=== PATIENT | female | born 1945 | race Caucasian/White ===

== ENCOUNTER 2019-09-09 09:38 | Outpatient (CLI) | payer MEDICARE, SELFPAY ==
--- NOTE | ~2019-09-09 | NM_ITS ---
EXAMINATION: NM bone scan whole body DATE: 09/09/2019 13:18 INDICATION: Metastatic breast cancer. TECHNIQUE: 24.4 mCi Tc-99m HDP was administered intravenously. Delayed whole-body scintigrams were o btained. COMPARISON: Bone scan 04/26/2019, CT abdomen and pelvis 05/04/2018, knee radiographs 07/08/2019 FINDINGS: There is increased activity in the left acetabulum correlating with a lytic lesion with hea ling pathologic fracture on the prior CT. There is joint-centered increased activity in the knees cor relating with osteoarthritis on radiographs. There are foci of joint-centered increased activity in t horacic spine without comparison imaging, likely osteoarthritis. IMPRESSION: 1. Unchanged distribution of increased activity in right acetabulum correlating with a lytic lesion w ith healing pathologic fracture on the prior CT, consistent with metastatic disease. Given that the l esions seen on the prior CT were predominantly lytic, CT would be more sensitive than bone scan for m etastatic disease. Reviewed, dictated and finalized at location A. IMPRESSION: 1. Unchanged distribution of increased activity in right acetabulum correlating with a lytic lesion with healing pathologic fracture on the prior CT, consiste nt with metastatic disease. Given that the lesions seen on the prior CT were pr edominantly lytic, CT would be more sensitive than bone scan for metastatic dis ease.
== END 2019-09-09 09:39 | disposition home or self-care (01) ==
PROVIDERS: PCP Family Medicine; Visit Provider Internal Medicine Hematology & Oncology
DX: C50.919 Malignant neoplasm of unspecified site of unspecified female breast (principal); I74.9 Embolism and thrombosis of unspecified artery; R93.7 Abnormal findings on diagnostic imaging of other parts of musculoskeletal system
CPT/HCPCS: 78306; A9561

== ENCOUNTER 2020-03-09 10:56 | Outpatient (CLI) | payer MEDICARE, SELFPAY ==
--- NOTE | ~2020-03-09 | NM_ITS ---
EXAMINATION: NM bone scan whole body DATE: 03/09/2020 14:53 INDICATION: Metastatic breast cancer TECHNIQUE: 23.6 mCi Tc-99m HDP was administered intravenously. Delayed whole-body scintigrams were o btained. COMPARISON: Bone scan dated 09/09/2019, 05/07/2018, CT dated 05/04/2018 and MRI dated 05/06/2018 FINDINGS: Again seen is a region of mild increased uptake in the region of the right acetabulum. More subtle in creased uptake along a few ribs most prominent anteriorly at the left third rib and posteriorly at th e right likely seventh rib, the former unchanged dating back to 03/09/2020. The latter appears new or increased since the most recent study. No significant change in likely degenerative joint centered up take at the bilateral knees. IMPRESSION: 1. Unchanged increased uptake in the right acetabular region and at the anterior left third rib with new or increasing uptake at the posterior right seventh rib which could represent progression of meta static disease. Of note sensitivity on bone scan is relatively low for lytic lesions with several les ions evident on earlier CT which were not discernible on the contemporaneous bone scan and could cons ider correlation with chest CT for further evaluation. Reviewed, dictated and finalized at location A. ER TECHNOLOGY TEACHER IMPRESSION: 1. Unchanged increased uptake in the right acetabular region and at the anterio r left third rib with new or increasing uptake at the posterior right seventh r ib which could represent progression of metastatic disease. Of note sensitivity on bone scan is relatively low for lytic lesions with several lesions evident on earlier CT which were not discernible on the contemporaneous bone scan and c ould consider correlation with chest CT for further evaluation.
== END 2020-03-09 10:57 | disposition home or self-care (01) ==
PROVIDERS: PCP Family Medicine; Visit Provider Internal Medicine Hematology & Oncology
DX: C50.919 Malignant neoplasm of unspecified site of unspecified female breast (principal)
CPT/HCPCS: 36415; 78306; 80053; 85025; 86300; A9561

== ENCOUNTER 2020-03-18 10:48 | Outpatient (NON) | payer MEDICARE, SELFPAY ==
[2020-03-20 06:44] LABS: SARS-CoV-2 RNA PCR Positive
== END 2020-03-18 10:49 ==
PROVIDERS: Visit Provider Family Medicine
DX: U07.1 COVID-19 (principal)
CPT/HCPCS: 87635; C9803; U0003

== ENCOUNTER 2020-04-03 09:47 | Outpatient (CLI) | payer MEDICARE, SELFPAY ==
--- NOTE | ~2020-04-03 | CT_ITS ---
EXAMINATION: CT chest w con DATE: 04/03/2020 10:19 INDICATION: metastatic breast cancer TECHNIQUE: Computed tomography (CT) of the chest was performed with 100 mL Omnipaque-350 intravenous contrast. Additional 3D reconstructions utilizing coronal maximum intensity projection (MIP) were per formed. Automated exposure control and iterative reconstruction technique were employed. The dose-maria de jesus gth product was 739.31 mGy-cm. COMPARISON: None FINDINGS: Multiple small patchy regions of consolidation and groundglass opacity throughout both lungs consiste nt with multifocal pneumonia with appearance suspicious for COVID 19. No more typical smooth solid sp herical nodules to suggest metastatic disease. No pulmonary edema, pleural effusion or pneumothorax. Heart size is normal. No pericardial effusion. No pathologically enlarged thoracic lymphadenopathy. S mall sliding-type hiatal hernia. Diffuse hepatic steatosis. Gallbladder, spleen, pancreas and bilater al adrenal glands are normal. Partially visualized at least 3 cm left renal cyst. IMPRESSION: 1. Multiple bilateral patchy airspace opacities with appearance most consistent with multifocal pneum onia including COVID 19. 2. No lesion suspicious for metastatic disease. 3. Diffuse hepatic steatosis. Reviewed, dictated and finalized at location A. [employer]OR G[employer]ANTS IMPRESSION: 1. Multiple bilateral patchy airspace opacities with appearance most consistent with multifocal pneumonia including COVID 19. 2. No lesion suspicious for metastatic disease. 3. Diffuse hepatic steatosis.
== END 2020-04-03 09:48 | disposition home or self-care (01) ==
PROVIDERS: PCP Family Medicine; Visit Provider Internal Medicine Hematology & Oncology
DX: C79.81 Secondary malignant neoplasm of breast (principal); K76.0 Fatty (change of) liver, not elsewhere classified; R91.8 Other nonspecific abnormal finding of lung field
CPT/HCPCS: 71260; Q9967

== ENCOUNTER 2020-06-29 10:14 | Outpatient (CLI) | payer MEDICARE, SELFPAY | END 2020-06-29 10:15 | disposition home or self-care (01) | LOC: ANHCOVIDVC 10:15 | PROVIDERS: PCP Family Medicine | DX: Z23 Encounter for immunization (principal) | CPT/HCPCS: 0001A; 91300 ==

== ENCOUNTER 2020-07-20 10:07 | Outpatient (CLI) | payer MEDICARE, SELFPAY | END 2020-07-20 10:08 | disposition home or self-care (01) | LOC: ANHCOVIDVC 10:07 | PROVIDERS: PCP Family Medicine | DX: Z23 Encounter for immunization (principal) | CPT/HCPCS: 0002A; 91300 ==

== ENCOUNTER 2020-09-30 10:40 | Outpatient (CLI) | payer MEDICARE, SELFPAY ==
--- NOTE | ~2020-09-30 | NM_ITS ---
EXAMINATION: NM bone scan whole body DATE: 09/30/2020 14:18 INDICATION: Metastatic breast cancer TECHNIQUE: 24.5 mCi Tc-99m HDP was administered intravenously. Delayed whole-body scintigrams were o btained. COMPARISON: Bone scan dated 03/09/2020 FINDINGS: Again seen are several foci of likely metastatic atypical bone uptake with interval decrease in the d egree of uptake. This includes at the left acetabulum, anterior left third rib and at the posterior s eventh rib. The first corresponds to a primarily lytic lesion on CT dated 05/04/2018 was biopsied on 05/08/2018 and the latter 2 rib lesions with subtle corresponding sclerosis on the more recent chest CT d ated 04/03/2020. No discernible abnormal uptake above the level of the surrounding bone associated wit h an additional lytic lesion at the right ilium and mixed lytic and sclerotic lesions at the right sa cral ala and at the posterior right fourth and posterior left sixth ribs seen on the prior CT studies . Likely degenerative joint centered uptake at the bilateral knees. No other suspicious bone lesions identified. IMPRESSION: 1. Decrease in degree of uptake associated with the 3 previously noted lesions at the anterior left t hird rib, posterior right seventh rib and left acetabulum consistent with likely treated metastatic d isease. No new or enlarging foci of abnormal bone uptake to suggest progression of metastatic disease . Reviewed, dictated and finalized at location A. IMPRESSION: 1. Decrease in degree of uptake associated with the 3 previously noted lesions at the anterior left third rib, posterior right seventh rib and left acetabulum consistent with likely treated metastatic disease. No new or enlarging foci of abnormal bone uptake to suggest progression of metastatic disease.
== END 2020-09-30 10:41 | disposition home or self-care (01) ==
PROVIDERS: PCP Family Medicine; Visit Provider Internal Medicine Hematology & Oncology
DX: C50.919 Malignant neoplasm of unspecified site of unspecified female breast (principal)
CPT/HCPCS: 78306; A9561

== ENCOUNTER 2021-05-14 11:59 | Outpatient (CLI) | payer MEDICARE, SELFPAY ==
--- NOTE | ~2021-05-14 | NM_ITS ---
EXAMINATION: NM bone scan whole body DATE: 05/14/2021 15:02 INDICATION: Metastatic breast cancer. TECHNIQUE: 21 mCi Tc-99m HDP was administered intravenously. Delayed whole-body scintigrams were obt ained. COMPARISON: Bone scan dated 09/30/2020 and 09/03/2018 FINDINGS: Persistent abnormal uptake such with a large lesion at the left acetabulum with prior biopsy demonstr ating metastatic carcinoma consistent with breast primary. Additional persistent foci of abnormal u ptake at the right sacral ala and very subtly at the anterior left third and posterior right seventh ribs consistent with additional metastatic disease. Likely degenerative joint centered uptake at the bilateral knees, acromioclavicular and sternoclavicular joints. No other new or progressive foci of a bnormal uptake to suggest progression of metastatic disease. IMPRESSION: 1. Persistent foci of mild increased bone uptake associated with a lesions at the left supra-acetabul ar region consistent with biopsy-proven metastatic breast cancer and with additional lesions suspicio us for metastatic disease to the right sacral ala, left anterior third rib and right posterior sevent h rib. No new or enlarging foci of abnormal bone uptake to suggest progression of metastatic disease. Reviewed, dictated and finalized at location A. OR CONTROL SYSTEMS ENGINEER IMPRESSION: 1. Persistent foci of mild increased bone uptake associated with a lesions at t he left supra-acetabular region consistent with biopsy-proven metastatic breast cancer and with additional lesions suspicious for metastatic disease to the ri ght sacral ala, left anterior third rib and right posterior seventh rib. No new or enlarging foci of abnormal bone uptake to suggest progression of metastatic disease.
== END 2021-05-14 12:00 | disposition home or self-care (01) ==
LOC: ANHIMG 12:00
PROVIDERS: PCP Family Medicine; Visit Provider Internal Medicine Hematology & Oncology
DX: C50.919 Malignant neoplasm of unspecified site of unspecified female breast (principal)
CPT/HCPCS: 78306; A9561

== ENCOUNTER 2021-10-13 10:57 | Outpatient (CLI) | payer MEDICARE, SELFPAY ==
--- NOTE | ~2021-10-13 | NM_ITS ---
EXAMINATION: NM bone scan whole body DATE: 10/14/2021 07:36 INDICATION: Metastatic breast cancer. TECHNIQUE: 25.5 mCi Tc-99m HDP was administered intravenously. Delayed whole-body scintigrams were o btained. COMPARISON: Chest CT 04/03/2020, bone scan 05/14/2021, CT abdomen and pelvis 05/04/2018 FINDINGS: There is joint-centered increased activity in the spine, shoulders, and knees, likely osteo arthritis. There is increased activity in left acetabulum correlating with a lytic lesion by CT. Ther e is increased activity in left sacral ala correlating with a sclerotic lesion by CT. There is increa sed activity in anterior left third rib and multiple posterior ribs correlating with sclerotic lesion s by CT. IMPRESSION: 1. Increased activity in left acetabulum, sacrum, and multiple ribs without change in distribution, c onsistent with metastatic disease. Note that some lesions on prior imaging were lytic, and bone scan has low sensitivity for lytic lesions. Reviewed, dictated and finalized at location B. IMPRESSION: 1. Increased activity in left acetabulum, sacrum, and multiple ribs without krista nge in distribution, consistent with metastatic disease. Note that some lesions on prior imaging were lytic, and bone scan has low sensitivity for lytic lesio gregg.
== END 2021-10-13 10:58 | disposition home or self-care (01) ==
PROVIDERS: PCP Family Medicine; Visit Provider Internal Medicine Hematology & Oncology
DX: C79.81 Secondary malignant neoplasm of breast (principal)
CPT/HCPCS: 78306; A9561

== ENCOUNTER 2022-06-13 08:55 | Outpatient (CLI) | payer MEDICARE, SELFPAY ==
--- NOTE | ~2022-06-13 | NM_ITS ---
EXAMINATION: NM bone scan whole body DATE: 06/13/2022 12:28 INDICATION: Metastatic breast cancer. TECHNIQUE: 24 mCi Tc-99m HDP was administered intravenously. Delayed whole-body scintigrams were obt ained. COMPARISON: Bone scan 10/13/2021, chest CT 04/03/2020, CT abdomen and pelvis 05/04/2018 FINDINGS: There is increased activity in the knees without radiographic comparison, likely osteoarthr itis. Again seen is increased activity in left acetabulum. There are multiple foci of increased activ ity in the spine and sacrum with interval improvement. IMPRESSION: 1. Increased activity in the left acetabulum and sacrum and multiple foci in the spine with interval improvement correlating with abnormal lesions on prior CT, consistent with metastatic disease. Reviewed, dictated and finalized at location A. M AND GAS TURBINE ASSEMBLER IMPRESSION: 1. Increased activity in the left acetabulum and sacrum and multiple foci in th e spine with interval improvement correlating with abnormal lesions on prior CT , consistent with metastatic disease.
== END 2022-06-13 08:56 | disposition home or self-care (01) ==
PROVIDERS: PCP Family Medicine; Visit Provider Internal Medicine Hematology & Oncology
DX: C50.919 Malignant neoplasm of unspecified site of unspecified female breast (principal)
CPT/HCPCS: 78306; A9503

== ENCOUNTER 2023-02-08 09:25 | Outpatient (CLI) | payer MEDICARE, SELFPAY ==
--- NOTE | ~2023-02-08 | NM_ITS ---
NM bone scan whole body INDICATION: Prostatic cancer TECHNIQUE: The patient was injected with 24.5 mCi Tc 99m HDP. Gamma camera images of the region of i nterest and whole body were obtained. COMPARISON: Comparison to multiple prior studies sequentially, with oldest reviewed study dated 06/2020. FINDINGS: There is retention of radiotracer in the right renal collecting system and bladder. Stable mild uptake in the right supra-acetabular region which has decreased in intensity over time compared with multiple prior studies. There is mild multifocal paracentric uptake in the spine, nonspecific, a lthough there are no new areas of increased uptake. There are mild bilateral asymmetric uptake in the knees, likely degenerative. IMPRESSION: 1: Decreased uptake in the spine and right supra-acetabular region compared with prior examinations which may represent combination of treated metastatic disease and/or degenerative change. No new area s of abnormal uptake are seen. Reviewed, dictated and finalized at location B. IMPRESSION: 1: Decreased uptake in the spine and right supra-acetabular region compared wi th prior examinations which may represent combination of treated metastatic dis ease and/or degenerative change. No new areas of abnormal uptake are seen.
== END 2023-02-08 09:26 | disposition home or self-care (01) ==
PROVIDERS: PCP Family Medicine; Visit Provider Internal Medicine Hematology & Oncology
DX: C50.919 Malignant neoplasm of unspecified site of unspecified female breast (principal)
CPT/HCPCS: 78306; A9503

== ENCOUNTER 2023-06-27 14:00 | Outpatient (CLI) | payer MEDICARE, SELFPAY ==
--- NOTE | ~2023-06-27 | US_ITS ---
EXAMINATION: US venous doppler LE RT DATE: 06/27/2023 14:46 INDICATION: Right lower limb swelling. TECHNIQUE: Grayscale ultrasound images without and with compression and Doppler ultrasound images of the right lower extremity veins were obtained. COMPARISON: None. FINDINGS: The visualized portions of right profunda (deep) femoral vein, femoral vein, popliteal vein, peroneal veins, posterior tibial veins, and greater saphenous vein outflow are patent. There is thrombus in r ight common femoral vein. IMPRESSION: 1. Deep vein thrombosis involving right common femoral vein. Reviewed, dictated and finalized at location A. NIC SECTION TECHNICAL LEAD
== END 2023-06-27 14:01 | disposition home or self-care (01) ==
LOC: ANHIMG 14:06
PROVIDERS: PCP Family Medicine; Visit Provider Internal Medicine Hematology & Oncology
DX: M79.89 Other specified soft tissue disorders (principal); I82.411 Acute embolism and thrombosis of right femoral vein
CPT/HCPCS: 93971

== ENCOUNTER 2024-01-08 11:20 | Outpatient (CLI) | payer MEDICARE, SELFPAY ==
--- NOTE | ~2024-01-08 | NM_ITS ---
EXAMINATION: NM bone scan whole body DATE: 01/08/2024 14:59 INDICATION: Malignant neoplasm of breast with metastasis. TECHNIQUE: 25.4 mCi Tc-99m HDP was administered intravenously. Delayed whole-body scintigrams were o btained. COMPARISON: Bone scan 02/08/2023, chest CT 04/03/2020, CT abdomen and pelvis 05/04/18 FINDINGS: Obesity decreases sensitivity. There is joint-centered increased activity in the knees and thoracic spine, likely osteoarthritis. There is asymmetric increased activity in left acetabulum. IMPRESSION: 1. Chronic asymmetric increased activity in left acetabulum correlating with a lytic lesion on the CT from 05/04/2018, consistent with metastatic disease. Note that CT is more sensitive than bone scan for lytic bone lesions. Reviewed, dictated and finalized at location A.
== END 2024-01-08 11:21 | disposition home or self-care (01) ==
PROVIDERS: PCP Family Medicine; Visit Provider Internal Medicine Hematology & Oncology
DX: C50.919 Malignant neoplasm of unspecified site of unspecified female breast (principal)
CPT/HCPCS: 78306; A9503

== ENCOUNTER 2024-12-26 16:18 | Outpatient (CLI) | payer MEDICARE, SELFPAY ==
--- NOTE | ~2024-12-26 | US_ITS ---
EXAMINATION:US venous doppler LE RT INDICATION:DVT femoral vein TECHNIQUE: Multiple grayscale, color flow and Doppler images of the right lower extremity deep venous systems were obtained and reviewed. COMPARISON:Ultrasound dated 06/27/2023 FINDINGS: There is deep venous thrombosis of the left posterior tibial and peroneal vein. The remainder of the right lower extremity veins are patent with normal flow, compressibility and augmentation. IMPRESSION: 1: Deep venous thrombosis right posterior tibial and peroneal vein. Reviewed, dictated and finalized at location O.
--- OUTSIDE RECORDS SUMMARY | 2024-12-26 16:22 | XMS_ITS | Encounter Summary ---
Author Organization [facility] [facility] Address [address] [place] [address] Care Team Providers Care Optical Advisor Name Role Phone Philippe Paez MD Primary Care Provider [phone] Encounter Details Date Type Department Care Team (Late Contact Info) Description 12/23/2024 Orders Only [facility] Oncology and Hematology [facility] [address] [place] [address] Car Snyder MD [facility] [employer] [address] [address] [place] [id number] Primary malignant neoplasm of breast with metastasis (CMS/HCC) Social History Tobacco Use Types Packs/Day Years Used Date Smoking Tobacco: Never Smokeless Tobacco: Never Alcohol Use Standard Drinks/Week Comments Yes 0 (1 standard drink = 0.6 oz pur e alcohol) occassional Comments No Sex and Gender Information Value Date Recorded Sex Assigned at Not on file Legal Sex Female 2:38 PM DRAWER FITTER Gender Identity Not on file Sexual Orientation Not on file documented as of this encounter Plan of Treatment Upcoming Encounters Date Type Department Care Team (Late Contact Info) Description 03/11/2025 2:15 PM DRAWER FITTER Office Visit [facility] Oncology and Hematology [facility] [address] [place] [address] Car Snyder MD [address] [place] [phone] documented as of this encounter Visit Diagnoses Diagnosis Primary malignant neoplasm of breast with metastasis (CMS/HCC) documented in this encounter Care Teams Optical Advisor Relationship Specialty Start Date End Date Philippe Paez MD [address] [place] [address] PCP - General Family Practice 05/31/18 documented as of this encounter
--- OUTSIDE RECORDS SUMMARY | 2024-12-26 16:22 | XMS_ITS | Encounter Summary ---
Author Organization [facility] ([facility])[3] [employer] [facility] Address [address] [place] [address] Care Team Providers Care Data Mining Analyst Name Role Phone Philippe Paez MD Primary Care Provider [phone] Reason for Visit * Reason Comments Medication Refill Encounter Details Date Type Department Care Team ([facility] Contact Info) Description 05/27/2021 Refill [facility] Oncology and Hematology [facility] [address] [place] [address] Car Snyder MD [address] [facility] [address] [place] [address] Metastatic breast cancer (CMS/HCC) Social History Tobacco Use Types Packs/Day Years Used Date Smoking Tobacco: Never Smokeless Tobacco: Never Alcohol Use Standard Drinks/Week Comments Yes 0 (1 standard drink = 0.6 oz pur e alcohol) occassional Comments No Sex and Gender Information Value Date Recorded Sex Assigned at Not on file Legal Sex Female 2:38 PM MEDIA INTERN Gender Identity Not on file Sexual Orientation Not on file COVID-19 Exposure Response Date Recorded In the last month, have you been in contact with someone who was confirmed or suspected to have Coronavirus / COVID-19? No / Unsure 05/17/2021 8:43 AM MEDIA INTERN documented as of this encounter Plan of Treatment Upcoming Encounters Date Type Department Care Team ([facility] Contact Info) Description 03/11/2025 2:15 PM MEDIA INTERN Office Visit [facility] Oncology and Hematology [facility] [address] [place] [address] Car Snyder MD [address] [facility] [address] [place] [address] documented as of this encounter Visit Diagnoses Diagnosis Metastatic breast cancer documented in this encounter Care Teams Data Mining Analyst Relationship Specialty Start Date End Date Philippe Paez MD [address] [place] [address] PCP - General Family Practice 05/31/18 documented as of this encounter
--- OUTSIDE RECORDS SUMMARY | 2024-12-26 16:22 | XMS_ITS | Clinical Summary ---
Author Organization [facility] Address [address] [place] [address] Care Team Providers Care Cutting Table Operator Name Role Phone Philippe Paez MD Primary Care Provider Allergies Active Allergy Reactions Criticality Noted Date Comments Codeine Nausea and Vomiting,Abdominal Pain Low 0 05/31/2018 Medications enalapril (VASOTEC) 20 mg tablet TK 1 T PO D 1 8 Active metoprolol tartrate (LOPRESSOR) 50 mg tablet TK 2 TS PO IN THE MORNING AND 1 T IN THE EVENING 0 8 Active acetaminophen (TYLENOL) 500 mg tablet Take 500 mg by mouth every 6 hours as needed. Active multivitamin (DAILY-SUYAPA) tablet Take 1 Tablet by mouth daily. Active omega-3 fatty acids-fish oil 300-1,000 mg Capsule Take by mouth daily. Active mupirocin (BACTROBAN) 2 % Ointment APPLY TOPICALLY TO THE AFFECTED AREA TWICE DAILY 2 Active CYANOCOBALAMIN, VITAMIN B-12, ORAL Take by mouth. Activ e palbociclib (Ibrance) 125 mg tabletIndicatio ns:Primary malignant neoplasm of breast with metastasis (CMS/HCC) Take 1 tablet by mouth for 21 days and then off for 7 days. 21 Tablet 6 4 Active rivaroxaban (Xarelto) 20 mg Tablet take 1 tablet by mouth every day 90 Tablet 3 4 Active letrozole (FEMARA) 2.5 mg tabletIndicatio ns:Primary malignant neoplasm of breast with metastasis (CMS/HCC) TAKE 1 TABLET BY MOUTH EVERY DAY 90 Tablet 3 5 Active Active Problems Problem Noted Date Diagnosed Date Metastatic breast cancer 05/31/2018 Encounters Date Type Department Care Team Description 12/23/2024 Orders Only [facility] [place] [address] Car Snyder MD Primary malignant neoplasm of breast with metastasis (CMS/HCC) 12/13/2024 Telephone [facility] [place] [address] Car Snyder MD returned call (Patient to call and schedule doppler.) 12/13/2024 Telephone [facility] [place] [address] Cra Snyder MD Medication Problem 12/09/2024 Orders Only [facility] [place] [address] Car Snyder MD Primary malignant neoplasm of breast with metastasis (CMS/HCC) 12/03/2024 External Device Data STL ABSTRACTION Provider, Abstract 11/25/2024 Orders Only [facility] [place] [address] Car Snyder MD Primary malignant neoplasm of breast with metastasis (CMS/HCC) 11/13/2024 External Device Data ST[facility] ABSTRACTION Provider, Abstract 11/12/2024 External Device Data ST[facility] ABSTRACTION Provider, Abstract 11/11/2024 Orders Only [facility] [place] [address] [place] [id number] Car Snyder MD Primary malignant neoplasm of breast with metastasis (CMS/HCC) 11/06/2024 2:15 PM CDT Office Visit [facility] [place] [address] Car Snyder MD Primary malignant neoplasm of breast with metastasis (CMS/HCC) (Primary Dx) 10/28/2024 Orders Only [facility] - [place] [address] [place] [id number] Car Snyder MD Primary malignant neoplasm of breast with metastasis (CMS/HCC) 10/25/2024 Orders Only [facility] - [place] [address] [place] [address] Car Snyder MD 10/24/2024 Orders Only [facility] - [place] [address] [place] [address] Car Snyder MD 10/14/2024 Orders Only [facility] - [place] [address] [place] [address] Car Snyder MD Primary malignant neoplasm of breast with metastasis (CMS/HCC) 10/03/2024 Specialty Pharmacy [facility] [address] [place] [id number] Tita Schmitt, PHARMACIST 10/01/2024 External Device Data STL ABSTRACTION Provider, Abstract 09/30/2024 Orders Only [facility] - [place] [address] [place] [address] Car Snyder MD Primary malignant neoplasm of breast with metastasis (CMS/HCC) 09/25/2024 Orders Only [facility] - [place] [address] [place] [id number] Car Snyder MD from Last 3 Months Family History Medical History Relation Name Comments Cancer Father Heart Disease Father Other Father Diabetes Mother Heart Disease Mother Relation Name Status Comments Brother Alive Father Mother Social History Tobacco Use Types Packs/Day Years Used Date Smoking Tobacco: Never Smokeless Tobacco: Never Tobacco Cessation:Counseling Given: Not Answered Alcohol Use Standard Drinks/Week Comments Yes 0 (1 standard drink = 0.6 oz pur e alcohol) occassional Comments No Sex and Gender Information Value Date Recorded Sex Assigned at Not on file Legal Sex Female 2:38 PM [facility] Gender Identity Not on file Sexual Orientation Not on file Last Filed Vital Signs Vital Sign Reading Time Taken Comments Blood Pressure 129/74 11/06/2024 2:22 PM CDT Pulse 94 11/06/2024 2:22 PM CDT Temperature 36.9 C (98.5 F) 11/06/2024 2:22 PM CDT Respiratory Rate 15 11/06/2024 2:22 PM CDT Oxygen Saturation 97% 11/06/2024 2:22 PM CDT Inhaled Oxygen Concentration - - Weight 94.7 kg (208 lb 12.8 oz) 11/06/2024 2:22 PM CDT Height 149.9 cm (4' 11) 01/31/2022 2:37 PM CDT Body Mass Index 42.17 01/31/2022 2:37 PM CDT Plan of Treatment Upcoming Encounters Date Type Department Care Team (Late st Contact Info) Description 03/11/2025 2:15 PM REHAB LIAISON Office Visit [facility] - [place] [address] [place] [address] [facility] [address] [place] [address] Car Snyder MD [address] [facility] [address] [place] [address] Health Maintenance Due Date Last Done Comments DTAP/TDAP/TD VACCINES (1 - Tdap) 1966 PNEUMOCOCCAL VACCINE 50+ YEARS (1 of 1 - PCV) 02/08/19 97 ZOSTER VACCINE (1 of 2) 1997 OSTEOPOROSIS SCREENING 02/09/2012 RSV VACCINE (60+ or ) (1 - 1-dose 75+ series) 2022 INFLUENZA VACCINE (#1) 2024 Procedures Procedure Name Priority Date/Time Associated Diagnosis Comments COMPREHENSIVE METABOLIC PANEL Routine 10/23/2024 3:08 PM CDT CANCER ANTIGEN 15-3 Routine 10/23/2024 9 :24 AM CDT COMPREHENSIVE METABOLIC PANEL Routine 09/25/2024 4:12 PM CDT from Last 3 Months Results * COMPREHENSIVE METABOLIC PANEL (10/23/2024 3:08 PM CDT) Only the most recent of2 resultswithin the time period is included. Blood Car Snyder MD CHEMISTRY ORDERABLES Final Resu lt * CANCER ANTIGEN 15-3 (10/23/2024 9:24 AM CDT) Blood Car Snyder MD CHEMISTRY ORDERABLES Final Resu lt from Last 3 Months Insurance Care Teams Cutting Table Operator Relationship Specialty Start Date End Date Philippe Paez MD [address] [place] [address] PCP - General Family Practice 05/31/18
== END 2024-12-26 16:19 | disposition home or self-care (01) ==
PROVIDERS: PCP Family Medicine; Visit Provider Internal Medicine Hematology & Oncology
DX: I82.411 Acute embolism and thrombosis of right femoral vein (principal)
CPT/HCPCS: 93971